=== PATIENT | male | born 1945 | race Caucasian/White ===

== ENCOUNTER → 2021-01-29 | Outpatient (CLI) | payer MEDICAID | LOC: HEART CORB 13:16 | DX: I49.3 Ventricular premature depolarization (principal); R94.31 Abnormal electrocardiogram [ECG] [EKG]; I08.3 Combined rheumatic disorders of mitral, aortic and tricuspid valves; I27.20 Pulmonary hypertension, unspecified; Z86.79 Personal history of other diseases of the circulatory system | CPT/HCPCS: 93306 ==

== ENCOUNTER → 2021-02-14 | Outpatient (CLI) | payer MEDICAID | LOC: HEART CORB 08:17 | DX: R94.39 Abnormal result of other cardiovascular function study (principal); I47.2 Ventricular tachycardia; I49.3 Ventricular premature depolarization; I51.9 Heart disease, unspecified; I25.2 Old myocardial infarction | CPT/HCPCS: 78452; A9502; J2785 ==